=== PATIENT | male | born 1975 ===

== ENCOUNTER → 2022-01-30 | Outpatient (CLI) | payer OTHER ==
--- NOTE | 2022-01-30 16:33 | RAD ---
US EXT NON VASC LEFT History:Reason: PALAPABLE LUMPS LT ANTERIOR CALF / Spl. Instructions: / History: Comparison: None Technique: Sonographic examination of the left anterior calf Findings: Small solid hypoechoic region within the left anterior calf measures 0.9 x 0.3 x 0.4 cm. additional l esion inferior measuring 0.2 cm. The lesions are along the anterior aspect of the musculature and cor respond with patient's possible concern. Impression: 1. Heterogeneous solid lesions corresponding with patient's palpable concern along the anterior aspe ct of the lower leg musculature. Recommend MRI with and without contrast to further assess. Electronically signed by: Sang Leon DO (01/30/2022 4:30 PM) [id number]
== END ==
LOC: US 15:50
PROVIDERS: ATTEND Nurse Practitioner Family
DX: R22.42 Localized swelling, mass and lump, left lower limb (principal)
CPT/HCPCS: 76881